=== PATIENT | female | born 1995 ===

== ENCOUNTER → 2016-11-11 | Outpatient (REF) | payer MEDICAID ==
[~2016-11-11] MED LIST: PRENTAB9 PO; ROCE1INJ4 IM
== END | disposition home or self-care (01) ==
LOC: M LAB REF 12:37
PROVIDERS: ATTEND Advanced Practice Midwife
DX: Z34.83 Encounter for supervision of other normal pregnancy, third trimester (principal); Z36 Encounter for antenatal screening of mother; Z3A.00 Weeks of gestation of pregnancy not specified

== ENCOUNTER 2016-11-14 10:31 | Inpatient (IN) | payer MEDICAID, OTHER ==
[~2016-11-14] VITALS: Ht 152.4 cm; Wt 68.0 kg
[2016-11-14] VITALS (7 sets, daily range): BP systolic 121–156; BP diastolic 71–105
[2016-11-14] MEDS: PRENATAL VITAMIN TAB PO SCH (09:00)
[2016-11-14] MEDS ORDERED: OXYTOCIN 30 UNITS IN 0.9% NaCl 500ML IV BAG (J2590) As Ordered ONE (10:51)
[2016-11-14] MEDS ORDERED: OXYTOCIN DRIP 30 UNITS in APPROPRIATE DILUENT 1 EA IV SCH (10:58)
[2016-11-14] MEDS ORDERED: cefTRIAXone SOD 1 GM in D5W MINI-BAG PLUS 50 ML IV ONE (11:00)
[2016-11-14] MEDS ORDERED: ACETAMINOPHEN 500 MG TAB PO PRN (11:00)
[2016-11-14] MEDS ORDERED: MEASLES,MUMPS,RUBELLA VACCINE INJ (MMR-II) (90707) SC SCH (11:00)
[2016-11-14] MEDS ORDERED: RHOGAM 300 MCG (1500 IU) INJ (J2790) IM SCH (11:00)
[2016-11-14] MEDS ORDERED: DOCUSATE SODIUM 100 MG CAP PO PRN (11:00)
[2016-11-14] MEDS ORDERED: DIBUCAINE 1% OINTMENT 30GM TOP PRN (11:00)
[2016-11-14] MEDS ORDERED: METHYLERGONOVINE MALEATE 0.2 MG TAB PO PRN (11:00)
[2016-11-14] MEDS ORDERED: PRENTAB9 PO (11:26)
[2016-11-14] MEDS ORDERED: ROCE1INJ4 IM (11:27)
[2016-11-14] MEDS: IBUPROFEN 800 MG TAB PO PRN ×2 (11:37→23:51)
[2016-11-15 05:33] VITALS: BP 131/64
[2016-11-15] MEDS: PRENATAL VITAMIN TAB PO SCH (08:10)
--- NOTE | 2016-11-15 08:29 | HPE ---
DATE OF ADMISSION: 11/14/2016 HISTORY: Giancarlo is a 21-year-old female, 2, para 1-0-0-1, with an expected date of confinement (EDC) of 11/22/2016. She presented to labor and delivery via ambulance after having an extramural vaginal delivery with retained placenta. The patient had the delivery en route to the hospital after having spontaneous rupture of membranes. Upon evaluation in labor and delivery, she was found to have a retained placenta with mild to moderate bleeding. Her record was reviewed. She is a late transfer of care to the office at approximately 36 weeks gestation. The patient recently found to be positive for gonorrhea and chlamydia. She was treated with 1 gram of azithromycin for the chlamydia and was also sent a prescription for Rocephin; however, she did not get the Rocephin as of yet. She will be treated in labor and delivery with 1 gram of Rocephin. LABS: Blood type is B+, rubella immune, hepatitis negative, HIV negative. MEDICAL HISTORY: Denies. PAST SURGICAL HISTORY: Denies. SOCIAL HISTORY: She denies any alcohol or drug use. REVIEW OF SYSTEMS: Unremarkable MEDICATIONS: - vitamin - azithromycin x1 dose recently ALLERGIES: No known drug allergies. PHYSICAL EXAMINATION: Normal-appearing female in no acute distress. Abdomen was soft, nondistended. Extremities: No clubbing, cyanosis or edema. Vaginal Exam: Found a retained placenta with [id number] bleeding. ASSESSMENT: 1. Extramural delivery at approximately 38+ weeks gestation of a live male infant. 2. Retained placenta. 3. Positive gonorrhea and chlamydia cultures, partially treated for the chlamydia with azithromycin, the patient never completed the Rocephin dose. PLAN: The patient will be admitted to labor and delivery. Will make attempt at removal of the placenta. If unsuccessful, will plan for dilatation and curettage (D and C). The patient will also be treated with 1 gram of Rocephin. [facility]
[2016-11-15] MEDS: IBUPROFEN 800 MG TAB PO PRN (12:23)
[2016-11-15 18:00] VITALS: BP 132/70
[2016-11-16 06:05] VITALS: BP 138/64
[2016-11-16] MEDS: PRENATAL VITAMIN TAB PO SCH (09:23)
[2016-11-16] MEDS ORDERED: ACET50TA PO (10:01)
[2016-11-16] MEDS ORDERED: IBUP600T26 PO (10:01)
[2016-11-16] MEDS ORDERED: IBUP-1114 PO (10:02)
--- NOTE | 2016-11-17 08:14 | RO ---
DATE OF PROCEDURE: 11/14/2016 PREPROCEDURE DIAGNOSES: 1. Extramural vaginal delivery. 2. Retained placenta. POST PROCEDURAL DIAGNOSES: 1. Extramural vaginal delivery. 2. Retained placenta. PROCEDURE: Manual removal of the placenta. SURGEON: Deepak Hansen DO PAYMENT PROCESSOR: ANESTHESIA: COMPLICATION: None. ESTIMATED BLOOD LOSS: Approximately 300 mL. FINDING: Patient delivered a live male infant on route to the hospital, brought [facility] by [facility] ([facility] Upon evaluation, had a retained placenta with [id number] bleeding. Placenta removed. Appeared to be normal for third trimester placenta. DESCRIPTION OF PROCEDURE: Patient was examined in the bed. Found to have retained placenta. At this point, after fundal massage and a manual extraction, we were able to get the placenta removed. The placenta was removed intact. The uterus explored and no evidence of any membranes left. Good hemostasis noted. Estimated blood loss was 300 mL. Patient was in stable condition. Pitocin given IV. Will continue to monitor the patient.
--- NOTE | 2016-11-20 08:37 | DSES ---
DATE OF ADMISSION: 11/14/2016 DATE OF DISCHARGE: 11/16/2016 Ms. Castaneda is a 21-year-old, 2, now para 2, admitted on 11/14/2016. She delivered a viable male en route to the hospital via ambulance. Upon arrival to labor and delivery, she was found to have retained placenta. Manual removal of the placenta was by Dr. Hansen without difficulty. Placenta was noted to be intact and bleeding was controlled. History of the was significant for late entry to care and a recent diagnosis with gonorrhea and Chlamydia. She was treated with azithromycin 1 gram by mouth prior to labor but had not yet received the prescribed Rocephin dose. The Rocephin was subsequently administered while inpatient. Vital signs are stable. Temperature is 98, 138/64. She is in no apparent distress. Abdomen is soft, nontender. Fundus is firm down 2 fingerbreadths, lochia rubra is light without odor. Perineum is intact. ASSESSMENT: day #2 manual removal of placenta. PLAN: Discharge home. Routine precautions. Pelvic rest. Call with fever, nausea, vomiting, chills, foul lochia, increased pain, any concerns. Instructed to return to the office at 6 weeks and to call as needed.
== END 2016-11-16 11:35 | disposition home or self-care (01) | DRG 541 ==
LOC: M LDI 10:31 → M OBS 15:10
PROVIDERS: ADMIT Obstetrics & Gynecology; ATTEND Obstetrics & Gynecology
PROC: 10D17ZZ Extraction of Products of Conception, Retained, Via Natural or Artificial Opening (ICD-10-PCS; principal; 2016-11-14)
DX: O72.0 Third-stage hemorrhage (principal); O98.33 Other infections with a predominantly sexual mode of transmission complicating the puerperium; A54.9 Gonococcal infection, unspecified; A74.9 Chlamydial infection, unspecified

== ENCOUNTER → 2016-12-25 | Outpatient (REF) | payer OTHER ==
[~2016-12-25] MED LIST changes: +ACET50TA PO; +IBUP-1114 PO; +IBUP600T26 PO
== END | disposition home or self-care (01) ==
LOC: M LAB REF 16:53
PROVIDERS: ATTEND Obstetrics & Gynecology
DX: Z11.3 Encounter for screening for infections with a predominantly sexual mode of transmission (principal)

== ENCOUNTER → 2017-02-09 | Outpatient (REF) | payer OTHER | LOC: M LAB REF 16:25 | PROVIDERS: ATTEND Advanced Practice Midwife | DX: Z11.3 Encounter for screening for infections with a predominantly sexual mode of transmission (principal) ==